=== PATIENT | female | born 1955 | race Caucasian/White ===

== ENCOUNTER 2024-07-05 12:54 | Day surgery (SDC) | payer MEDICARE ==
[~2024-07-05] VITALS: Ht 160 cm; Wt 70.4 kg
[~2024-07-05 12:54] MED LIST: Lactated Ringer's 1,000 ML IV ONE; propofoL 50 ML IV ONE
[2024-07-05] MEDS ORDERED: PRESERVISION A1 EAC5 (13:19)
[2024-07-05] MEDS ORDERED: Lisinopril2.5 MG (13:19)
[2024-07-05] MEDS ORDERED: Vitamin C100 M1 (13:20)
[2024-07-05] MEDS ORDERED: Lactated Ringer's 1,000 ML IV ONE (14:32)
[2024-07-05] MEDS ORDERED: Ondansetron HCl 2 MG / ML 2ML Vial ONE (16:19)
[2024-07-05 16:37] VITALS: BP 130/84
== END 2024-07-05 16:19 | disposition home or self-care (01) ==
LOC: ORSCSDS 12:54
PROVIDERS: Internal Medicine Gastroenterology
PROC: 0DBN8ZX Excision of Sigmoid Colon, Via Natural or Artificial Opening Endoscopic, Diagnostic (ICD-10-PCS; principal; 2024-07-05 14:15)
PROC: 0DBM8ZX Excision of Descending Colon, Via Natural or Artificial Opening Endoscopic, Diagnostic (ICD-10-PCS; principal; 2024-07-05 14:15)
DX: Z12.11 Encounter for screening for malignant neoplasm of colon (principal); K63.5 Polyp of colon; K57.30 Diverticulosis of large intestine without perforation or abscess without bleeding; K64.8 Other hemorrhoids; R19.5 Other fecal abnormalities; F17.210 Nicotine dependence, cigarettes, uncomplicated; Z79.899 Other long term (current) drug therapy
CPT/HCPCS: 88305; J2405; J2704; J7120